=== PATIENT | male | born 1965 | race Two or more races ===

== ENCOUNTER 2021-06-05 12:58 | Emergency (ER) | payer OTHER ==
[~2021-06-05] VITALS: Ht 165.1 cm; Wt 77.1 kg
[2021-06-05] MEDS ORDERED: cefTRIAXone SOD 1,000 MG VL IM ONE (17:00)
[2021-06-05 17:03] VITALS: BP 151/82
[2021-06-05] MEDS ORDERED: IBUPROFEN 800 MG TAB PO ONE (17:15)
== END 2021-06-05 17:31 | disposition home or self-care (01) ==
LOC: ER 12:58
DX: S62.525A Nondisplaced fracture of distal phalanx of left thumb, initial encounter for closed fracture (principal); S61.012A Laceration without foreign body of left thumb without damage to nail, initial encounter; W26.9XXA Contact with unspecified sharp object(s), initial encounter; Y93.89 Activity, other specified; Y92.89 Other specified places as the place of occurrence of the external cause; Y99.8 Other external cause status
CPT/HCPCS: 12002; 29130; 73130; 96372; 99283; J0696